=== PATIENT | male | born 1970 | race Caucasian/White ===

== ENCOUNTER 2017-03-02 12:38 | Day surgery (SDC) | payer OTHER ==
[~2017-03-02] VITALS: Ht 167.6 cm; Wt 93.3 kg
[2017-03-02] VITALS (10 sets, daily range): BP systolic 110–142; BP diastolic 63–88; PULSE 58–88; RESP 14–26; Ht 167.6 cm; Wt 93.3 kg
--- NOTE | 2017-03-02 12:24 | HPN ---
Date/Time of Note Date/Time of Note DATE: 03/02/17 TIME: 12:24 Interval H&P Admission Note Pt. seen H&P reviewed: No system changes BARTOLOME DIAZ MD Mar 02, 2017 12:24
[2017-03-02] MEDS ORDERED: LIDOCAINE 1%/EPI 30 ML INJ ONE ×2 (16:25→17:10)
[2017-03-02] MEDS ORDERED: COCAINE 4% 4 ML TOP ONE ×2 (16:25→17:10)
[2017-03-02] MEDS ORDERED: BACITRACIN/POLYMYXIN 28.35 GM OINT TOP ONE (16:27)
[2017-03-02] MEDS ORDERED: MIDAZOLAM 1 MG/ML 2 ML INJ ONE (16:47)
[2017-03-02] MEDS ORDERED: METOCLOPRAMIDE 10 MG INJ ONE (16:49)
[2017-03-02] MEDS ORDERED: ONDANSETRON 4 MG INJ IV PRN (17:00)
[2017-03-02] MEDS ORDERED: HYDROmorphONE (0.2 MG/ML) 10ML SYG IV PRN ×3 (17:00)
[2017-03-02] MEDS ORDERED: EPINEPHrine 1 MG INJ ONE (17:11)
[2017-03-02] MEDS ORDERED: NEOMYC/POLYMYX/BACIT 30 GM OINT ONE (17:11)
[2017-03-02] MEDS ORDERED: ROCURONIUM 50 MG INJ ONE (17:12)
[2017-03-02] MEDS ORDERED: PROPOFOL 20 ML ONE (17:12)
[2017-03-02] MEDS ORDERED: NEOSTIGMINE 3 MG/3 ML SYRINGE ONE (17:13)
[2017-03-02] MEDS ORDERED: GLYCOPYRROLATE 0.4 MG INJ ONE (17:13)
[2017-03-02] MEDS ORDERED: ONDANSETRON 4 MG INJ ONE (17:13)
[2017-03-02] MEDS ORDERED: OXYCODONE/ACETAMINOPHEN (5/325) TAB PO PRN (17:30)
--- NOTE | 2017-03-02 17:34 | OPR ---
Date/Time of Note Date/Time of Note DATE: 03/02/17 TIME: 17:30 Operative Report Procedure Date: Mar 02, 2017 Preoperative Diagnosis Septal deviation, nasal congestion, inferior turbinate hypertrophy. Postoperative Diagnosis Same Operation/Procedure Performed Revision septoplasty, submucous resection of turbinates. Surgeon see signature line Capacity Planning Manager None Anesthesia Type: general Estimated Blood Loss: minimal Transfusion none Specimen None Grafts/Implants none Complications none Pt Condition Post Procedure: stable Disposition: PACU Indications Persistent nasal congestion Procedure Description Description of procedure: The patient was identified in the holding area. We had a discussion to confirm understanding of all indications risks benefits alternatives and postoperative care associated with the operation. The patient signed informed consent was taken to the operating room. The patient was laid supine on the operating room table and general anesthesia was achieved without difficulty. The face was draped in sterile fashion and the nose was packed with 4% cocaine pledgets. The nasal septum was infiltrated with 5 cc of 1% lidocaine with epinephrine in the submucoperiosteal plane bilaterally. A left sided very posterior Aravind incision was made and submucoperichondreal flap elevated over left cartilagenous deviation. The cartilage was simply shaved away and flap returned. Some mucosal thinning was also performed due to edema. At this point the right inferior turbinate was medialized with a [place] elevator. The Coblation wand on a setting of 6 was used to enter the turbinate in the inferior medial submucosal compartment. 10 seconds of Coblation were performed at the 3rd 2nd and 1st dover after which the turbinate was crushed laterally into the lateral nasal wall with a [place] elevator. The contralateral turbinate was addressed in similar fashion to complete the bilateral submucous resection and lateral fracturing of the inferior turbinates. A Merocel pack was placed on each side. The patient was awakened, extubated and taken to the PACU in stable condition. Complications: None. BARTOLOME DIAZ MD Mar 02, 2017 17:34
[2017-03-02] MEDS ORDERED: FENTAnyl 50 MCG/ML VIAL ONE (17:39)
== END 2017-03-02 19:15 | disposition home or self-care (01) ==
LOC: SDS 12:38
PROVIDERS: ATTEND Otolaryngology
DX: J34.2 Deviated nasal septum (principal); J34.3 Hypertrophy of nasal turbinates
CPT/HCPCS: 30140; 30520; J0171; J1170; J2250; J2405; J2710; J2765; Z7512; Z7610; J3010